=== PATIENT | male | born 1960 | race Caucasian/White ===

== ENCOUNTER 2017-07-27 09:24 | Inpatient (IN) | payer BC ==
[~2017-07-27] VITALS: Ht 154.9 cm; Wt 95.0 kg
[2017-07-27] MEDS ORDERED: METO-407 PO (10:03)
[2017-07-27] MEDS ORDERED: HYDR50TA3 PO (10:04)
[2017-07-27] MEDS ORDERED: LANT3I SC (10:04)
[2017-07-27] MEDS ORDERED: GLIP10TA95 PO (10:05)
[2017-07-27] MEDS ORDERED: MTF1000T PO (10:05)
[2017-07-27] MEDS ORDERED: OMEG1CAP2 PO (10:06)
[2017-07-27] MEDS ORDERED: ASPI81TA3 PO (10:06)
[2017-07-27] MEDS ORDERED: SOD CHLORIDE 0.9% 1,000 ML IV STA (10:32)
--- NOTE | 2017-07-27 11:05 | ERD ---
ER Documentation Chief Complaint Date/Time DATE: 07/27/17 TIME: 11:03 Chief Complaint sent from MD for eval abnormal labs HPI 56-year-old man sent by PMD for hypokalemia. He started using hydrochlorothiazide about 5 days ago for uncontrolled hypertension and medication noncompliance. He denies palpitations, no weakness, no fevers or chills, no chest pain or shortness of breath, no vomiting or diarrhea. ROS All systems reviewed and are negative except as per history of present illness. Medications Home Meds Reported Medications Aspirin* (Aspirin* Chew) 81 Mg Tab.chew, 81 MG PO DAILY, TAB.CHEW 07/27/17 Amanda-3 Acid Ethyl Esters (Lovaza) 1 Gm Capsule, 2 GM PO DAILY, CAP 07/27/17 Metformin* (Glucophage*) 1,000 Mg Tablet, 1000 MG PO BID, #60 TAB 07/27/17 Glipizide* (Glucotrol*) 10 Mg Tablet, 10 MG PO BID, TAB 07/27/17 Insulin Glargine* (Lantus*) 100 Unit/Ml Soln, 10 UNIT SC QPM, #1 VIAL 07/27/17 Hydrochlorothiazide* (Hydrochlorothiazide*) 50 Mg Tab, 50 MG PO DAILY, #30 TAB 07/27/17 Metoprolol Tartrate* (Lopressor*) 100 Mg Tablet, 100 MG PO BID, #60 TAB 07/27/17 Allergies Allergies: Coded Allergies: No Known Allergy (Unverified , 07/27/17) PMhx/Soc Hypertension, diabetes mellitus History of Surgery: Yes (right knee surgery post accident) Hx Cardiac Disorders: Yes (htn) Hx Miscellaneous Medical Probl: Yes (dm) Hx Alcohol Use: Yes Hx Substance Use: No Hx Tobacco Use: No Smoking Status: Never smoker FmHx Family History: No diabetes Physical Exam Vitals Vital Signs Date Time Temp Pulse Resp B/P Pulse Ox O2 Delivery O2 Flow Rate FiO2 07/27/17 10:17 72 17 149/89 96 Room Air 07/27/17 09:28 98.9 73 20 137/81 99 Physical Exam GENERAL: Well-developed, well-nourished, well-hydrated, in no apparent distress , looks nontoxic in appearance HEENT: Moist mucous membranes, pink conjunctiva, no cervical spine tenderness or step-off deformities, no goiter, no jaundice or icterus, extraocular movements intact without pain. No submandibular induration, and no pharyngeal erythema NEURO: Alert and oriented 3, cranial nerves II through XII intact bilaterally, pupils equal round reactive to light, no focal deficits or facial asymmetry, sensation intact distally Strength 5/5 in upper and lower extremities bilaterally CARDIAC: Regular rate and rhythm, no murmurs rubs or gallops LUNGS: Clear bilaterally no wheezing crackles or stridor ABDOMEN: Soft nontender, no guarding, no rigidity, no rebound, no psoas sign no obturator sign. Normoactive bowel sounds SKIN: Warm and dry to touch, no abrasions, contusions, or hematomas, no lacerations, no ecchymosis, no target lesions, and without ulcers EXTREMITIES: No clubbing cyanosis or edema, calves are bilaterally symmetrical, no Homans sign, no popliteal cord sign. Distal pulses equal and bilateral PSYCH: Normal affect without agitation or irritability Result Diagram: 07/27/17 1000 07/27/17 1000 Results 24 hrs Laboratory Tests Test 07/27/17 10:00 White Blood Count 10.010^3/ul Red Blood Count 5.0710^6/ul Hemoglobin 16.1g/dl Hematocrit 46.0% Mean Corpuscular Volume 90.7fl Mean Corpuscular Hemoglobin 31.8pg Mean Corpuscular Hemoglobin Concent 35.0g/dl Red Cell Distribution Width 12.0% Platelet Count 02064^3/UL Mean Platelet Volume 10.9fl Neutrophils % 68.7% Lymphocytes % 19.3% Monocytes % 9.8% Eosinophils % 0.7% Basophils % 1.1% Nucleated Red Blood Cells % 0.0/100WBC Neutrophils # (Manual) 6.910^3/ul Lymphocytes # 1.910^3/ul Monocytes # 1.010^3/ul Eosinophils # 0.110^3/ul Basophils # 0.110^3/ul Nucleated Red Blood Cells # 0.010^3/ul Sodium Level 141mmol/L Potassium Level 2.3mmol/L Chloride Level 84mmol/L Carbon Dioxide Level 36mmol/L Anion Gap 23 Blood Urea Nitrogen 30mg/dl Creatinine 1.27mg/dl Glucose Level 261mg/dl Calcium Level 10.0mg/dl Total Bilirubin 0.9mg/dl Direct Bilirubin 0.00mg/dl Indirect Bilirubin 0.9mg/dl Aspartate Amino Transf (AST/SGOT) 45IU/L Alanine Aminotransferase (ALT/SGPT) 54IU/L Alkaline Phosphatase 110IU/L Troponin I 0.030ng/ml Total Protein 8.2g/dl Albumin 4.4g/dl Globulin 3.80g/dl Albumin/Globulin Ratio 1.15 Lipase 206U/L Current Medications Medications (Trade) Dose Ordered Sig/Tiffanie Route PRN Reason Start Time Stop Time Status Last Admin Dose Admin Sodium Chloride 1,000 ml @ 1,000 mls/hr Q1H STAT IV 07/27/17 10:32 07/27/17 11:31 DC 07/27/17 10:54 Magnesium Sulfate/ Dextrose 100 ml @ 100 mls/hr ONCE ONCE IVPB 07/27/17 13:00 07/27/17 13:59 07/27/17 13:17 Potassium Chloride (KCl 40 MEQ/250 ML NS) 250 ml @ 62.5 mls/hr ONCE ONCE IVPB 07/27/17 13:00 07/27/17 16:59 Potassium Citrate (Urocit-K) 40 meq ONCE STAT PO 07/27/17 12:55 07/27/17 13:10 DC Procedures/MDM IV line was established patient was placed on quality assurance monitor chassis rhythm strip revealed a sinus rhythm at about 60 bpm. Patient was afebrile. EKG performed, read by me revealed a normal sinus rhythm at 67 bpm, normal axis , with a right ventricular conduction delay at 104 ms, diffuse T-wave inversions and evidence of left ventricular hypertrophy in precordial leads, no concerning ST elevations or depressions noted. CBC was unremarkable, electrolytes revealed dehydration with an increased BUN/ creatinine ratio at 30/1.3, potassium low at 2.3, liver function tests unremarkable, troponin negative. I had already administered 1 L normal saline intravenously and for severe hypokalemia administered both IV and oral potassium supplementation as well as magnesium 1 g IV. Critical Care: Time: 37 minutes, this was time separate from other billable procedures. Treatments/Evaluations: Close monitoring and treatment of unstable vital signs, cardiorespiratory, and neurologic status, while maintaining tight balance of fluid, respiratory, and cardiac interventions. Patient will be admitted to telemetry setting for continued medical management, blood pressure control, potassium supplementation. His hypokalemia is most likely secondary to recent hydrochlorothiazide use. Departure Diagnosis: Primary Impression: Hypokalemia Additional Impressions: Side effect of potassium wasting diuretic Hypertension Hypertension type: essential hypertension Qualified Code: I10 - Essential hypertension Condition: MAIA Hernandez MD Jul 27, 2017 11:05
[2017-07-27 11:51] LABS: BASOPHIL # 0.1 10^3/ul (0.0-0.1); BASOPHILS % 1.1 % (0.0-2.0); EOSINOPHILS # 0.1 10^3/ul (0.0-0.5); EOSINOPHILS % 0.7 % (0.0-7.0); HEMOGLOBIN 16.1 g/dl (14.0-18.0); LYMPHOCYTES # 1.9 10^3/ul (0.8-2.9); LYMPHOCYTES % 19.3 % (15.0-51.0); MEAN CORPUSCULAR HEMOGLOBIN 31.8 pg (29.0-33.0); MEAN CORPUSCULAR VOLUME 90.7 fl (82.0-101.0); MEAN PLATELET VOLUME 10.9 fl (7.4-10.4); MONOCYTES % 9.8 % (0.0-11.0); NEUTROPHILS % 68.7 % (39.0-77.0); PLATELET COUNT 256 10^3/UL (140-415); RED BLOOD COUNT 5.07 10^6/ul (4.70-6.10)
[2017-07-27 12:50] LABS: ALBUMIN 4.4 g/dl (3.3-4.9); ALBUMIN/GLOBULIN RATIO 1.15; BILIRUBIN,INDIRECT 0.9 mg/dl (0-1.1); BILIRUBIN,TOTAL 0.9 mg/dl (0.2-1.3); CREATININE 1.27 mg/dl (0.61-1.24); TOTAL PROTEIN 8.2 g/dl (6.1-8.1)
[2017-07-27 12:53] LABS: POTASSIUM 2.3 mmol/L (3.5-5.1)
[2017-07-27] MEDS ORDERED: POTASSIUM CITRATE (SR) 5 MEQ TAB PO STA (12:55)
[2017-07-27 12:58] LABS: TROPONIN-I 0.03 ng/ml (0.00-0.12)
[2017-07-27] MEDS ORDERED: POTASSIUM CHLORIDE 250 ML IVPB ONE (13:00)
[2017-07-27] MEDS ORDERED: MAGNESIUM SULFATE 1 GM/D5W 100 ML IVPB ONE (13:00)
[2017-07-27] MEDS ORDERED: POTASSIUM CHLORIDE (SR) 20 MEQ TAB PO STA (13:36)
[2017-07-27] MEDS ORDERED: GLUCOSE GEL 15 GRAM TUBE PO PRN ×2 (15:00)
[2017-07-27] MEDS ORDERED: hydrALAzine 20 MG INJ IV PRN (15:00)
[2017-07-27] MEDS ORDERED: DEXTROSE 50% 50 ML SYRINGE IV PRN ×2 (15:00)
[2017-07-27] MEDS ORDERED: MAGNESIUM HYDROXIDE 30ML CUP PO PRN (15:00)
[2017-07-27] MEDS ORDERED: GLUCOSE GEL 15 GRAM TUBE BUCCAL PRN (15:00)
[2017-07-27] MEDS ORDERED: GLUCAGON 1 MG INJ IM PRN (15:00)
[2017-07-27] MEDS ORDERED: BISACODYL (EC) 5 MG TAB PO PRN (15:00)
[2017-07-27] MEDS ORDERED: ACETAMINOPHEN 325 MG TAB PO PRN (15:00)
[2017-07-27] MEDS ORDERED: ONDANSETRON 4 MG INJ IV PRN (15:00)
[2017-07-27] MEDS ORDERED: DOCUSATE SODIUM 100 MG CAP PO PRN (15:00)
[2017-07-27] MEDS ORDERED: HYDROCODONE/APAP (5/325) TAB PO PRN (15:00)
[2017-07-27] MEDS ORDERED: morphine 2 MG INJ IV PRN (15:00)
[2017-07-27] MEDS ORDERED: NACL 0.9% 3 ML SYG IV SCH (15:00)
--- NOTE | 2017-07-27 15:31 | RADRPT ---
PROCEDURE: Chest x-ray CLINICAL INDICATION: Low potassium TECHNIQUE: Chest single view COMPARISON: None FINDINGS: The heart is normal in size. The pulmonary vessels are normal in caliber. The lungs are clear. Th e costophrenic angles are sharp. The visualized bony thorax is unremarkable. IMPRESSION: No acute cardiopulmonary disease. Low lung volumes RPTAT: HH .Zach Drew MD, Date Time Electronically viewed and signed by .Zach Drew MD, on 07/27/2017 15:31 .W/
[2017-07-27 16:00] VITALS: TEMP 98
[2017-07-27] MEDS: METOPROLOL 100 MG TAB PO SCH ×2 (16:00→23:25)
[2017-07-27] MEDS: NIFEdipine (XL) 90 MG TAB PO SCH (16:00)
[2017-07-27] MEDS: POTASSIUM CHLORIDE 20 MEQ POWDER FOR ORAL SOLN PO SCH ×2 (16:00→23:23)
[2017-07-27 17:50] VITALS: BP 164/94; PULSE 71; RESP 20
--- NOTE | 2017-07-27 18:59 | HP ---
Date/Time of Note Date/Time of Note DATE: 07/27/17 TIME: 18:52 Assessment/Plan VTE Prophylaxis VTE Prophylaxis Intervention: ambulation Lines/Catheters IV [facility]from [facility] Saline Lock Assessment/Plan Chief Complaint/Hosp Course 1. Hypokalemia. Probably hydrochlorothiazide induced. Stable replace potassium. 2. Chronic hypertension. Will proceed with secondary workup. 3. Nonadherence 4. Possible alcoholism 6. Chronic diabetes 7. Metabolic syndrome 8. Recent fall Problems: HPI/ROS Admit Date/Time Admit Date/Time Jul 27, 2017 at 13:27 Hx of Present Illness Chief complaint low potassium. Has had problems with blood pressure sugar as an outpatient. Stop Coreg. Was recently placed on hydrochlorothiazide. Metoprolol and metformin may be associated with dizziness weakness, which she was concerned about affecting his work. No loss of speech vision nausea diarrhea confusion cough wheezing. ER: Stable vital signs rhythm. ROS Neuro: No loss of speech vision. Occasional dizziness which he states is due to medications Cardiology no cough no wheezing no edema Nares: No cough no wheezing no edema Abdomen: No pain positive nausea no constipation diarrhea Genitourinary no hematuria burning micturition fever Musculoskeletal weakness no gait dysfunction no rash no itching Constitutional no fevers no chills no weight loss Endocrine positive diabetes metabolic syndrome no previous thyroid disease Hematological: No dysuria hematochezia melena Psychiatry: No anxiety depression PMH/Family/Social Past Medical History Diabetes Hypertension Metabolic syndrome Alcoholism? Nonadherence Traumatic fall7 feet off a ladder Sciatica Past Surgical History Surgical history none Family History Significant Family History: other (No family history of early coronary disease cancer stroke. Brother had heart disease at 58.) Social History Alcohol Use: other (4 times weekly with [employer]) Smoking Status: Never smoker Exam/Review of Systems Vital Signs Vitals Vital Signs Date Time Temp Pulse Resp B/P Pulse Ox O2 Delivery O2 Flow Rate FiO2 07/27/17 17:50 99.0 71 20 164/94 97 Room Air Exam Exam No pallor icterus adenopathy JVD droop Regular no murmur rub gallop CTA B Bowel sounds present nontender nondistended no rigidity no rebound no guarding. Overweight no bruit No edema Labs Result Diagram: 07/27/17 1000 07/27/17 1000 Medications Medications Current Medications Potassium Chloride 40 meq 40 meq TID PO Last administered on 07/27/17 16:00; Admin Dose 40 MEQ; Start 07/27/17 at 15:00 Potassium Chloride/Dextrose/ Sod Cl (D5-1/2ns + KCl 40 Meq) 1,000 ml @ 50 mls/ hr Q20H IV ; Start 07/27/17 at 15:00 Nifedipine (Procardia Xl) 90 mg DAILY PO Last administered on 07/27/17 16:00; Admin Dose 90 MG; Start 07/27/17 at 15:00 Hydralazine HCl (Apresoline) 5 mg Q3 PRN IV ELEVATED SYSTOLIC BP Last administered on 07/27/17 17:04; Admin Dose 5 MG; Start 07/27/17 at 15:00 Aspirin (Aspirin) 81 mg DAILY PO ; Start 07/28/17 at 09:00 Insulin Glargine (Lantus) 10 unit QPM SC ; Start 07/27/17 at 21:00 Metoprolol Tartrate (Lopressor) 100 mg BID PO Last administered on 07/27/17 16 :00; Admin Dose 100 MG; Start 07/27/17 at 15:00 Ondansetron HCl (Zofran Inj) 4 mg Q6H PRN IV NAUSEA AND/OR VOMITING; Start at 15:00 Acetaminophen (Tylenol Tab) 650 mg Q6H PRN PO PAIN LEVEL 1-3 OR FEVER; Start at 15:00 Acetaminophen/ Hydrocodone Bitart ([place] (5/325)) 1 tab Q6H PRN PO MODERATE PAIN LEVEL 4-6 Last administered on 07/27/17 16:06; Admin Dose 1 TAB; Start at 15:00 Morphine Sulfate (morphine) 2 mg Q4H PRN IV SEVERE PAIN LEVEL 7-10; Start 07/27 at 15:00 Docusate Sodium (Colace) 100 mg Q12H PRN PO CONSTIPATION; Start 07/27/17 at 15: 00 Magnesium Hydroxide (Milk Of Mag) 30 ml DAILY PRN PO CONSTIPATION; Start at 15:00 Bisacodyl (Dulcolax) 5 mg DAILY PRN PO CONSTIPATION; Start 07/27/17 at 15:00 Enoxaparin Sodium (Lovenox) 40 mg DAILY SC ; Start 07/28/17 at 09:00 Miscellaneous Information 1 ea NOTE XX ; Start 07/27/17 at 15:00 Glucose (Glutose) 15 gm Q15M PRN PO DECREASED GLUCOSE; Start 07/27/17 at 15:00 Glucose (Glutose) 22.5 gm Q15M PRN PO DECREASED GLUCOSE; Start 07/27/17 at 15: 00 Dextrose (D50w Syringe) 25 ml Q15M PRN IV DECREASED GLUCOSE; Start 07/27/17 at 15:00 Dextrose (D50w Syringe) 50 ml Q15M PRN IV DECREASED GLUCOSE; Start 07/27/17 at 15:00 Glucagon (Glucagen) 1 mg Q15M PRN IM DECREASED GLUCOSE; Start 07/27/17 at 15:00 Glucose (Glutose) 15 gm Q15M PRN BUCCAL DECREASED GLUCOSE; Start 07/27/17 at 15 :00 JORDAN BRUSH MD Jul 27, 2017 18:59
[2017-07-27 19:02] VITALS: Ht 154.9 cm; Wt 95.0 kg
[2017-07-27 20:03] VITALS: PULSE 72
[2017-07-27] MEDS: D5W-0.45 NACL + KCL 40 MEQ 1,000 ML IV SCH (21:01)
[2017-07-27 21:56] VITALS: BP 134/88; PULSE 77; RESP 20
[2017-07-27] MEDS: LISINOPRIL 5 MG TAB PO SCH (23:24)
[2017-07-27] MEDS: INSULIN GLARGINE [LANtus] 3 ML PEN SC SCH (23:27)
[2017-07-28] VITALS (9 sets, daily range): BP systolic 117–140; BP diastolic 69–73; PULSE 66–79; RESP 14–18
[2017-07-28] MEDS: POTASSIUM CHLORIDE 20 MEQ POWDER FOR ORAL SOLN PO SCH ×3 (09:48→20:38)
[2017-07-28] MEDS: ENOXAPARIN 40 MG/0.4 ML SYG SC SCH (09:51)
[2017-07-28] MEDS: NIFEdipine (XL) 90 MG TAB PO SCH (09:53)
[2017-07-28] MEDS: LISINOPRIL 5 MG TAB PO SCH (09:53)
[2017-07-28] MEDS: METOPROLOL 100 MG TAB PO SCH ×2 (09:54→20:39)
[2017-07-28] MEDS: ASPIRIN 81 MG TAB PO SCH (10:33)
[2017-07-28 10:51] LABS: BASOPHIL # 0.1 10^3/ul (0.0-0.1); BASOPHILS % 0.9 % (0.0-2.0); EOSINOPHILS # 0.1 10^3/ul (0.0-0.5); EOSINOPHILS % 1.6 % (0.0-7.0); HEMATOCRIT 47.3 % (42.0-52.0); HEMOGLOBIN 16.2 g/dl (14.0-18.0); LYMPHOCYTES # 2.3 10^3/ul (0.8-2.9); MEAN CORPUSCULAR HEMOGLOBIN 31.8 pg (29.0-33.0); MEAN CORPUSCULAR HGB CONC 34.2 g/dl (32.0-37.0); MEAN CORPUSCULAR VOLUME 92.9 fl (82.0-101.0); MEAN PLATELET VOLUME 10.5 fl (7.4-10.4); MONOCYTE # 0.8 10^3/ul (0.3-0.9); MONOCYTES % 10.4 % (0.0-11.0); NEUTROPHILS % 56.4 % (39.0-77.0); PLATELET COUNT 258 10^3/UL (140-415); RED BLOOD COUNT 5.09 10^6/ul (4.70-6.10); RED CELL DISTRIBUTION WIDTH 12.2 % (11.5-14.5); WHITE BLOOD COUNT 7.7 10^3/ul (4.8-10.8)
[2017-07-28] MEDS: D5W-0.45 NACL + KCL 40 MEQ 1,000 ML IV SCH ×2 (11:00→18:12)
[2017-07-28 11:06] LABS: INR 1.01; PROTIME 13.3 Sec (12.2-14.2)
[2017-07-28 11:07] LABS: CHOL/HDL RATIO 2.8 RATIO
[2017-07-28 11:08] LABS: ALBUMIN 4.5 g/dl (3.3-4.9); ALBUMIN/GLOBULIN RATIO 1.12; BILIRUBIN,INDIRECT 0.9 mg/dl (0-1.1); BILIRUBIN,TOTAL 0.9 mg/dl (0.2-1.3); CALCIUM 9.5 mg/dl (8.4-10.2); CREATININE 0.97 mg/dl (0.61-1.24); MAGNESIUM 2.1 mg/dl (1.7-2.5); PHOSPHORUS 2.9 mg/dl (2.5-4.9); POTASSIUM 3.3 mmol/L (3.5-5.1); TOTAL PROTEIN 8.5 g/dl (6.1-8.1)
[2017-07-28 12:11] LABS: THYROID STIMULATING HORMONE 2.48 MIU/L (0.465-4.680)
--- NOTE | 2017-07-28 17:10 | PN ---
Date/Time of Note Date/Time of Note DATE: 07/28/17 TIME: 17:08 Assessment/Plan VTE Prophylaxis VTE Prophylaxis Intervention: LMWH Lines/Catheters IV Catheter Type (from Nrs): Saline Lock Assessment/Plan Chief Complaint/Hosp Course No events. Blood sugar stable Vital signs stable No pallor Reg Clear Bs + nt nd no r/r/g ext edema A/P 1. Hypokalemia. Probably hctz induced. Stable replace K. 2. Chr htn. Will proceed with secondary workup. USG pending 3. Nonadherence 4. Possible alcoholism 6. Chronic diabetes 7. Metabolic syndrome 8. Recent fall Problems: Exam/Review of Systems Vital Signs Vitals Vital Signs Date Time Temp Pulse Resp B/P Pulse Ox O2 Delivery O2 Flow Rate FiO2 07/28/17 16:10 77 07/28/17 14:29 98.7 18 140/73 98 Room Air Intake and Output 07/27/17 07/27/17 07/28/17 15:00 23:00 07:00 Intake Total 1000 ml Balance 1000 ml Results Result Diagram: 07/28/17 1019 07/28/17 1019 Results 24 hrs Laboratory Tests Test 07/28/17 10:19 White Blood Count 7.7 # Red Blood Count 5.09 Hemoglobin 16.2 Hematocrit 47.3 Mean Corpuscular Volume 92.9 Mean Corpuscular Hemoglobin 31.8 Mean Corpuscular Hemoglobin Concent 34.2 Red Cell Distribution Width 12.2 Platelet Count 258 Mean Platelet Volume 10.5 H Neutrophils % 56.4 Lymphocytes % 30.0 Monocytes % 10.4 Eosinophils % 1.6 Basophils % 0.9 Nucleated Red Blood Cells % 0.0 Neutrophils # (Manual) 4.3 Lymphocytes # 2.3 Monocytes # 0.8 Eosinophils # 0.1 Basophils # 0.1 Nucleated Red Blood Cells # 0.0 Prothrombin Time 13.3 Prothrombin Time Ratio 1.0 INR International Normalized Ratio 1.01 Sodium Level 142 Potassium Level 3.3 L Chloride Level 97 # Carbon Dioxide Level 36 H Anion Gap 12 # Blood Urea Nitrogen 23 H Creatinine 0.97 Glucose Level 194 Hemoglobin A1c 7.3 H Calcium Level 9.5 Phosphorus Level 2.9 Magnesium Level 2.1 Total Bilirubin 0.9 Direct Bilirubin 0.00 Indirect Bilirubin 0.9 Aspartate Amino Transf (AST/SGOT) 48 H Alanine Aminotransferase (ALT/SGPT) 55 Alkaline Phosphatase 108 Total Protein 8.5 H Albumin 4.5 Globulin 4.00 H Albumin/Globulin Ratio 1.12 Triglycerides Level 172 H Cholesterol Level 195 LDL Cholesterol, Calculated 92 HDL Cholesterol 69 Cholesterol/HDL Ratio 2.8 Thyroid Stimulating Hormone (TSH) 2.480 Medications Medications Current Medications Potassium Chloride 40 meq 40 meq TID PO Last administered on 07/28/17 13:38; Admin Dose 40 MEQ; Start 07/27/17 at 15:00 Potassium Chloride/Dextrose/ Sod Cl (D5-1/2ns + KCl 40 Meq) 1,000 ml @ 50 mls/ hr Q20H IV Last administered on 07/28/17 11:00; Admin Dose 50 MLS/HR; Start at 15:00 Nifedipine (Procardia Xl) 90 mg DAILY PO Last administered on 07/28/17 09:53; Admin Dose 90 MG; Start 07/27/17 at 15:00 Hydralazine HCl (Apresoline) 5 mg Q3 PRN IV ELEVATED SYSTOLIC BP Last administered on 07/27/17 17:04; Admin Dose 5 MG; Start 07/27/17 at 15:00 Aspirin (Aspirin) 81 mg DAILY PO Last administered on 07/28/17 10:33; Admin Dose 81 MG; Start 07/28/17 at 09:00 Insulin Glargine (Lantus) 10 unit QPM SC Last administered on 07/27/17 23:27; Admin Dose 10 UNIT; Start 07/27/17 at 21:00 Metoprolol Tartrate (Lopressor) 100 mg BID PO Last administered on 07/28/17 09: 54; Admin Dose 100 MG; Start 07/27/17 at 15:00 Ondansetron HCl (Zofran Inj) 4 mg Q6H PRN IV NAUSEA AND/OR VOMITING; Start at 15:00 Acetaminophen (Tylenol Tab) 650 mg Q6H PRN PO PAIN LEVEL 1-3 OR FEVER; Start at 15:00 Acetaminophen/ Hydrocodone Bitart ([place] (5/325)) 1 tab Q6H PRN PO MODERATE PAIN LEVEL 4-6 Last administered on 07/27/17 16:06; Admin Dose 1 TAB; Start at 15:00 Morphine Sulfate (morphine) 2 mg Q4H PRN IV SEVERE PAIN LEVEL 7-10; Start 07/27 at 15:00 Docusate Sodium (Colace) 100 mg Q12H PRN PO CONSTIPATION; Start 07/27/17 at 15: 00 Magnesium Hydroxide (Milk Of Mag) 30 ml DAILY PRN PO CONSTIPATION; Start at 15:00 Bisacodyl (Dulcolax) 5 mg DAILY PRN PO CONSTIPATION; Start 07/27/17 at 15:00 Enoxaparin Sodium (Lovenox) 40 mg DAILY SC Last administered on 07/28/17 09:51 ; Admin Dose 40 MG; Start 07/28/17 at 09:00 Miscellaneous Information 1 ea NOTE XX ; Start 07/27/17 at 15:00 Glucose (Glutose) 15 gm Q15M PRN PO DECREASED GLUCOSE; Start 07/27/17 at 15:00 Glucose (Glutose) 22.5 gm Q15M PRN PO DECREASED GLUCOSE; Start 07/27/17 at 15: 00 Dextrose (D50w Syringe) 25 ml Q15M PRN IV DECREASED GLUCOSE; Start 07/27/17 at 15:00 Dextrose (D50w Syringe) 50 ml Q15M PRN IV DECREASED GLUCOSE; Start 07/27/17 at 15:00 Glucagon (Glucagen) 1 mg Q15M PRN IM DECREASED GLUCOSE; Start 07/27/17 at 15:00 Glucose (Glutose) 15 gm Q15M PRN BUCCAL DECREASED GLUCOSE; Start 07/27/17 at 15 :00 Lisinopril (Zestril) 5 mg DAILY PO Last administered on 07/28/17 09:53; Admin Dose 5 MG; Start 07/27/17 at 21:00 JORDAN BRUSH MD Jul 28, 2017 17:10
[2017-07-28] MEDS: INSULIN GLARGINE [LANtus] 3 ML PEN SC SCH (21:58)
[2017-07-29] VITALS (9 sets, daily range): BP systolic 111–139; BP diastolic 68–83; PULSE 65–79; RESP 16–19
[2017-07-29] MEDS: POTASSIUM CHLORIDE 20 MEQ POWDER FOR ORAL SOLN PO SCH (08:51)
[2017-07-29] MEDS: METOPROLOL 100 MG TAB PO SCH (08:52)
[2017-07-29] MEDS: ASPIRIN 81 MG TAB PO SCH (08:52)
[2017-07-29] MEDS: LISINOPRIL 5 MG TAB PO SCH (08:52)
[2017-07-29] MEDS: NIFEdipine (XL) 90 MG TAB PO SCH (08:52)
[2017-07-29] MEDS: ENOXAPARIN 40 MG/0.4 ML SYG SC SCH (08:59)
--- NOTE | 2017-07-29 10:33 | PDOCDIS ---
Discharge Instructions DIAGNOSIS Discharge Diagnosis hypokalemia CONDITION Patient Condition: Stable HOME CARE INSTRUCTIONS: Special Diet: 1800 ada ACTIVITY: Activity Restrictions: Slowly Increase Activity FOLLOW UP/APPOINTMENTS Follow-up Plan Pcp 1wJORDAN Figueredo MD Jul 29, 2017 10:33
[2017-07-29] MEDS ORDERED: POTA20PA23 PO (10:35)
[2017-07-29] MEDS ORDERED: NIFE90TA PO (10:35)
[2017-07-29] MEDS ORDERED: LISI-313 PO (10:35)
--- NOTE | 2017-07-29 11:32 | DS ---
Date/Time of Note Date/Time of Note DATE: 07/29/17 TIME: 11:24 Discharge Summary Admission/Discharge Info Admit Date/Time Jul 27, 2017 at 13:27 Discharge Date/Time Discharge Diagnosis hypokalemia Patient Condition: Good Procedures Renal Artery Ultrasound-- X-ray ok Labs. TSH ok. A1c 7.2. Hx of Present Illness Chief complaint low potassium. Has had problems with blood pressure sugar as an outpatient. Stop Coreg. Was recently placed on hydrochlorothiazide. Metoprolol and metformin may be associated with dizziness weakness, which she was concerned about affecting his work. No loss of speech vision nausea diarrhea confusion cough wheezing. ER: Stable vital signs rhythm. Hospital Course Evaluated and managed for hyperkalemia. No syncope bradycardia EKG changes or symptoms. On hydrochlorothiazide. This was discontinued. Patient was given oral and IV potassium. He is presently stable and fit for discharge. Patient has nonadherence to htn meds, due to possible adverse symptoms on diabetic and hypertensive management. While in the hospital, the patient seems to be tolerating beta-elvia and his new calcium channel elvia and MAR inhibitor. I held metformin while he was in the hospital. Secondary eval for elevated blood pressure and hypokalemia was sent. I think this will be negative but can be followed up as needed at [phone] and [phone]. A/P 1. Hypokalemia. Probably hctz induced. Stable replaced K. 2. Chr htn. Will proceed with secondary workup. Reanl Artery Study done; results pending. 3. Nonadherence 4. Possible alcoholism 6. Chronic diabetes 7. Metabolic syndrome 8. Recent fall Stopped Medications Hydrochlorothiazide New medications nifedipine 60 Lisinopril 5 K 40 once daily 3 days Home Meds Active Scripts Potassium Chloride (Potassium Chloride) 20 Meq Packet, 40 MEQ PO DAILY for 3 Days, #5 PACKET Prov:JORDAN BRUSH MD 07/29/17 Nifedipine (Procardia Xl) 90 Mg Tab.er.24, 90 MG PO DAILY for 15 Days, #15 TAB Prov:JORDAN BRUSH MD 07/29/17 Lisinopril* (Lisinopril*) 5 Mg Tablet, 5 MG PO DAILY for 15 Days, #15 TAB Prov:JORDAN BRUSH MD 07/29/17 Reported Medications Aspirin* (Aspirin* Chew) 81 Mg Tab.chew, 81 MG PO DAILY, TAB.CHEW 07/27/17 Dike-3 Acid Ethyl Esters (Lovaza) 1 Gm Capsule, 2 GM PO DAILY, CAP 07/27/17 Metformin* (Glucophage*) 1,000 Mg Tablet, 1000 MG PO BID, #60 TAB 07/27/17 Glipizide* (Glucotrol*) 10 Mg Tablet, 10 MG PO BID, TAB 07/27/17 Insulin Glargine* (Lantus*) 100 Unit/Ml Soln, 10 UNIT SC QPM, #1 VIAL 07/27/17 Metoprolol Tartrate* (Lopressor*) 100 Mg Tablet, 100 MG PO BID, #60 TAB 07/27/17 Discontinued Reported Medications Hydrochlorothiazide* (Hydrochlorothiazide*) 50 Mg Tab, 50 MG PO DAILY, #30 TAB 07/27/17 Follow-up Plan PCP 1wk Primary Care Provider Alissa Arshad Pending Labs Laboratory Tests Test 07/28/17 17:15 07/28/17 21:52 07/29/17 10:35 Bedside Glucose 263mg/dL (70-220) 162mg/dL (70-220) Potassium Level 3.9mmol/L (3.5-5.1) JORDAN BRUSH MD Jul 29, 2017 11:32
[2017-07-29 11:37] LABS: ADD UMIC NO; UR ASCORBIC ACID NEGATIVE (NEGATIVE); UR BILIRUBIN (Dip) NEGATIVE (NEGATIVE); UR BLOOD (Dip) NEGATIVE (NEGATIVE); UR CLARITY CLEAR (CLEAR); UR COLOR STRAW (YELLOW); UR GLUCOSE (Dip) 3+ mg/dL (NEGATIVE); UR KETONES (Dip) NEGATIVE (NEGATIVE); UR LEUKOCYTE ESTERASE (Dip) NEGATIVE Leu/ul (NEGATIVE); UR NITRITE (Dip) NEGATIVE (NEGATIVE); UR SPECIFIC GRAVITY (Dip) 1.007 (1.003-1.030); UR TOTAL PROTEIN (Dip) NEGATIVE (NEGATIVE); UR UROBILINOGEN (Dip) NEGATIVE (NEGATIVE)
[2017-07-30] MEDS ORDERED: POTASSIUM CHLORIDE 20 MEQ POWDER FOR ORAL SOLN PO SCH (09:00)
--- NOTE | 2017-07-31 11:03 | RADRPT ---
PROCEDURE: US Renal Arteries. CLINICAL INDICATION: Hypertension TECHNIQUE: Renal artery Doppler ultrasound was performed with barnes scale, color flow, and Doppler interrogation of the renal arteries and kidneys. COMPARISON: None available FINDINGS: The right kidney measures 11.4 cm. The left kidney measures 11.0 cm. There are no focal areas of abn ormal echogenicity. There is no evidence for obstructive uropathy. LOCATIONRIGHT (cm/sec)LEFT (cm/sec) Aorta PSV 60.4 Prox main renal artery PSVobscured by bowel gas obscured by bowel gas Resistive Index Mid main renal artery PSVobscured by bowel gas obscured by bowel gas Resistive Index Dist main renal artery PSV50.1 obscured by bowel gas Resistive Index0.8 Renal Artery-Aorta Ratio0.8 N/A Segmental artery PSV42.5 19.8 Resistive Index0.7 0.78 Arcuate artery PSV28.5 33.5 Resistive Index0.8 0.8 IMPRESSION: 1. Evaluation is limited. The proximal renal arteries were not visualized secondary to overlying b owel gas. Consider follow-up evaluation after prolonged n.p.o. status. Alternatively, CT or MR ang iogram of the renal arteries can be performed. 2. Unremarkable appearance of the kidneys. RPTAT: HH .Rosa Terrell MD, Date Time Electronically viewed and signed by .Rosa Terrell MD, on 07/31/2017 11:02 .Sonya/
== END 2017-07-29 17:33 | disposition home or self-care (01) | DRG 641 ==
LOC: E/R 09:24 → MS3 13:27 → MS4 18:10
PROVIDERS: ADMIT Internal Medicine; ATTEND Internal Medicine
DX: E87.6 Hypokalemia (principal); E88.81 Metabolic syndrome and other insulin resistance; I10 Essential (primary) hypertension; T50.2X5A Adverse effect of carbonic-anhydrase inhibitors, benzothiadiazides and other diuretics, initial encounter; Y92.029 Unspecified place in mobile home as the place of occurrence of the external cause; E11.9 Type 2 diabetes mellitus without complications; F10.20 Alcohol dependence, uncomplicated; M54.30 Sciatica, unspecified side; Z79.4 Long term (current) use of insulin; Z79.84 Long term (current) use of oral hypoglycemic drugs; Z91.14 Patient's other noncompliance with medication regimen
CPT/HCPCS: 36415; 71010; 80053; 80061; 81003; 82088; 82306; 82962; 83036; 83690; 83735; 83835; 84100; 84132; 84244; 84443; 84484; 85025; 85610; 93005; 93976; 96361; 96374; 96375; J0360; J1650; J1815; J3475; J3480; J7030

== ENCOUNTER → 2017-08-03 | Outpatient (CLI) | payer BC ==
[~2017-08-03] VITALS: Ht 154.9 cm; Wt 100.5 kg
[~2017-08-03] MED LIST: ASPI81TA3 PO; GLIP10TA95 PO; LANT3I SC; LISI-313 PO; METO-407 PO; MTF1000T PO; NIFE90TA PO; OMEG1CAP2 PO; POTA20PA23 PO
[2017-08-03 15:15] VITALS: BP 130/71; PULSE 75; RESP 18; Ht 154.9 cm; Wt 100.5 kg
--- NOTE | 2017-08-03 15:43 | PN ---
Date/Time of Note Date/Time of Note DATE: 08/03/17 TIME: 15:37 Outpatient Progress Note Chief Complaint Hypertension/diabetes/metabolic syndrome/recent fall HPI Hypertension/no headache or dizziness, no local focal weakness, Diabetes/no polydipsia polyuria hypoglycemia, gastroparesis, no rash, Metabolic syndrome/patient has metabolic syndrome, patient morbidly obese, no history of any thyroid problem, Recent fall/patient now fell down from lateral, patient still has 20% pain, much improved compared to before, no tingling or numbness, Review of Systems Const: No Fever, no chills, no Wt. loss, no Fatigue, normal appetite, no diaphoresis. Patient morbidly obese, Eyes: No pain, no discharge, no redness, no visual change, no foreign body. ENT: No pain, no bleeding, no congestion, no sore throat, no dysphagia, no discharge or rhinitis. Lymph: No adenopathy, no tender nodes, no lymphedema. Resp: No SOB, no cough, no sputum, no wheezing, no chest pain. CV: No chest pain, no palpitaions, no BRONSON, no PND, no edema. GI: Normal appetite, no pain, no nausea, no vomiting, no diarrhea, no blood, no constipation. : No frequency, no urgency, no dysuria, no hematuria, no flank pain, no discharge, no bleeding. Musc: Generalized discomfort,, no back pain, no neck pain, no knee pain, no restricted ROM. Skin: No rash, no skin lesions, no erythema, no laceration, no bruising, no pruritus. Neuro: No BLAIR, no dizziness, no syncope, no seizure, no focal-weakness. Endo: No polyuria, no polydypsia, no dry-skin, no temp-intolerance. Psych: No hallucinations, no depression, no anxiety, no suicidal ideation. Ext: No edema, no pain, no ulcer, no weakness. Physical Exam Vital Signs Date Time Temp Pulse Resp B/P Pulse Ox O2 Delivery O2 Flow Rate FiO2 08/03/17 15:15 98.6 75 18 130/71 94 Room Air General Appearance: A 56 year-old male who appears well-developed, well- nourished, in no acute distress. HEENT: Head normocephalic, atraumatic. Pupils equal, round, reactive to light and accommodate. Sclerae are no jaundice. Nasal turbinates pink without erythema or nasal discharge. Mucous membranes pink and moist without lesions. Oropharynx clear without any exudate or discharge. NECK: Supple. Trachea midline, No thyromegaly, No cervical lymphadenopathy, No mass, No carotid bruits, No JVD, Carotid pulses 2+ bilaterally. PULMONARY: Clear to auscultaion bilaterally, No retractions, Chest expansion symmetric bilaterally, no rales, no ronchi, no dulness on percussion. CARDIAC: Normal SI and S2, Regular rate and rythm, no murmur, gallop, or rub. GASTROINTESTINAL: Abdomen is soft, non-tender, Non Rigid, No distention, Positive bowel sounds x4 quadrants, Liver normal. SKIN: Warm, dry, no rash, no bruise, no echmosis. EXTREMITIES: Bilateral lower extremities normal, no edema, no phlabitus, pulse palpable, no contracture. MUSCULOSKELETAL: Spine Normal, Non-tender, patient has generalized discomfort, much improved, normal range of motion, No swelling, no deformity, no clubbing, or cyanosis, the patient has no edema to bilateral lower extremities, dorsalis pedis pulses palpable bilaterally. NEUROLOGIC: The patient is awake, alert, oriented, responding to yes/no questions appropriately, moving all extremities, cranial nerve intact, normal strenght, normal power, normal coordination, normal gait. Allergies Coded Allergies: No Known Allergy (Unverified , 07/27/17) PMH Hypokalemia/history of alcoholism,/diabetic,/hypertension/metabolic syndrome Social Hx No smoking history suggestive of her chronic alcohol abuse, Family Hx Noncontributory Assessment/Plan Impression Hypertension/diabetes/metabolic syndrome/recent fall Plan Patient was recently hospitalized with f hypokalemia, patient also had metabolic syndrome, patient had hypokalemia, patient slightly doing better, Patient education done about controlling the blood pressure blood sugar and weight, risk explained, and complication explained, patient will increase activity, control blood sugar and blood pressure, Patient encouraged to follow with the primary care physician on regular basis, Fall precaution, Medications Home Meds Active Scripts Potassium Chloride (Potassium Chloride) 20 Meq Packet, 40 MEQ PO DAILY for 3 Days, #5 PACKET Prov:JORDAN BRUSH MD 07/29/17 Nifedipine (Procardia Xl) 90 Mg Tab.er.24, 90 MG PO DAILY for 15 Days, #15 TAB Prov:JORDAN BRUSH MD 07/29/17 Lisinopril* (Lisinopril*) 5 Mg Tablet, 5 MG PO DAILY for 15 Days, #15 TAB Prov:JORDAN BRUSH MD 07/29/17 Reported Medications Aspirin* (Aspirin* Chew) 81 Mg Tab.chew, 81 MG PO DAILY, TAB.CHEW 07/27/17 [place]-3 Acid Ethyl Esters (Lovaza) 1 Gm Capsule, 2 GM PO DAILY, CAP 07/27/17 Metformin* (Glucophage*) 1,000 Mg Tablet, 1000 MG PO BID, #60 TAB 07/27/17 Glipizide* (Glucotrol*) 10 Mg Tablet, 10 MG PO BID, TAB 07/27/17 Insulin Glargine* (Lantus*) 100 Unit/Ml Soln, 10 UNIT SC QPM, #1 VIAL 07/27/17 Metoprolol Tartrate* (Lopressor*) 100 Mg Tablet, 100 MG PO BID, #60 TAB 07/27/17 Discontinued Reported Medications Hydrochlorothiazide* (Hydrochlorothiazide*) 50 Mg Tab, 50 MG PO DAILY, #30 TAB 07/27/17 MANUELA MCKINNEY MD Aug 03, 2017 15:43
== END | disposition home or self-care (01) ==
LOC: DCC 15:14
PROVIDERS: ATTEND Internal Medicine
DX: I10 Essential (primary) hypertension (principal); E11.9 Type 2 diabetes mellitus without complications; E88.81 Metabolic syndrome and other insulin resistance; Z91.81 History of falling

== ENCOUNTER → 2017-08-17 | Outpatient (CLI) | payer BC ==
[~2017-08-17] VITALS: Ht 154.9 cm; Wt 101.4 kg
[2017-08-17 11:17] VITALS: BP 152/84; PULSE 65; RESP 18; Ht 154.9 cm; Wt 101.4 kg
--- NOTE | 2017-08-17 12:02 | PN ---
Date/Time of Note Date/Time of Note DATE: 08/17/17 TIME: 11:57 Outpatient Progress Note Chief Complaint Hypertension/diabetes/metabolic syndrome/slight back pain HPI Hypertension/no headache or dizziness, patient blood pressure slightly elevated today, patient is running out of medication, Diabetes/no polyps or bleeding hypoglycemia, Metabolic syndrome/no polydipsia polyuria, patient morbidly obese, no weight loss, Back pain patient has slight neck discomfort also slight abdominal discomfort, this pain has improved significantly, patient had this pain after patient fell down, Review of Systems Const: No Fever, no chills, no Wt. loss, no Fatigue, normal appetite, no diaphoresis. Eyes: No pain, no discharge, no redness, no visual change, no foreign body. ENT: No pain, no bleeding, no congestion, no sore throat, no dysphagia, no discharge or rhinitis. Lymph: No adenopathy, no tender nodes, no lymphedema. Resp: No SOB, no cough, no sputum, no wheezing, no chest pain. CV: No chest pain, no palpitaions, no BRONSON, no PND, no edema. GI: Normal appetite, no pain, no nausea, no vomiting, no diarrhea, no blood, no constipation. : No frequency, no urgency, no dysuria, no hematuria, no flank pain, no discharge, no bleeding. Musc:, Minimal back pain, no neck pain, no knee pain, no restricted ROM. Skin: No rash, no skin lesions, no erythema, no laceration, no bruising, no pruritus. Neuro: No BLAIR, no dizziness, no syncope, no seizure, no focal-weakness. Endo: No polyuria, no polydypsia, no dry-skin, no temp-intolerance. Psych: No hallucinations, no depression, no anxiety, no suicidal ideation. Ext: No edema, no pain, no ulcer, no weakness. Physical Exam Vital Signs Date Time Temp Pulse Resp B/P Pulse Ox O2 Delivery O2 Flow Rate FiO2 08/17/17 11:17 98.3 65 18 152/84 92 Room Air General Appearance: A 56 year-old male who appears well-developed, well- nourished, in no acute distress. Slightly obese, HEENT: Head normocephalic, atraumatic. Pupils equal, round, reactive to light and accommodate. no jaundice. Nasal turbinates pink without erythema or nasal discharge. Mucous membranes pink and moist without lesions. Oropharynx clear without any exudate or discharge. NECK: Supple. Trachea midline, No thyromegaly, No mass, No carotid bruits, No JVD, Carotid pulses 2+ bilaterally. PULMONARY: Clear to auscultaion bilaterally, No retractions, Chest expansion symmetric bilaterally, no rales, no ronchi, CARDIAC: Normal SI and S2, Regular rate and rythm, no murmur, gallop, or rub. GASTROINTESTINAL: Abdomen is soft, non-tender, Non Rigid, No distention, Positive bowel sounds x4 quadrants, Liver normal. SKIN: Warm, dry, no rash, no bruise, EXTREMITIES: Bilateral lower extremities no edema, no phlabitus, pulse palpable , no contracture. MUSCULOSKELETAL: Spine Normal, Non-tender, Normal range of motion, No swelling, no deformity, NEUROLOGIC: The patient is awake, alert, oriented, responding to yes/no questions appropriately, moving all extremities, cranial nerve intact, normal strenght, normal power, normal coordination, normal gait. Allergies Coded Allergies: No Known Allergy (Unverified , 07/27/17) PMH No change Social Hx No change Family Hx No change Assessment/Plan Impression Hypertension/diabetes/metabolic syndrome/musculoskeletal pain Plan Patient education done, patient advised to lose weight, increase activity, control blood pressure and blood sugar, and risk explained, Patient encouraged to follow with the primary care physician, Patient ran out of Procardia and Norvasc, will refill for 1 month, Medications Home Meds Active Scripts Potassium Chloride (Potassium Chloride) 20 Meq Packet, 40 MEQ PO DAILY for 3 Days, #5 PACKET Prov:JORDAN BRUSH MD 07/29/17 Nifedipine (Procardia Xl) 90 Mg Tab.er.24, 90 MG PO DAILY for 15 Days, #15 TAB Prov:JORDAN BRUSH MD 07/29/17 Lisinopril* (Lisinopril*) 5 Mg Tablet, 5 MG PO DAILY for 15 Days, #15 TAB Prov:JORDAN BRUSH MD 07/29/17 Reported Medications Aspirin* (Aspirin* Chew) 81 Mg Tab.chew, 81 MG PO DAILY, TAB.CHEW 07/27/17 [place]-3 Acid Ethyl Esters (Lovaza) 1 Gm Capsule, 2 GM PO DAILY, CAP 07/27/17 Metformin* (Glucophage*) 1,000 Mg Tablet, 1000 MG PO BID, #60 TAB 07/27/17 Glipizide* (Glucotrol*) 10 Mg Tablet, 10 MG PO BID, TAB 07/27/17 Insulin Glargine* (Lantus*) 100 Unit/Ml Soln, 10 UNIT SC QPM, #1 VIAL 07/27/17 Metoprolol Tartrate* (Lopressor*) 100 Mg Tablet, 100 MG PO BID, #60 TAB 07/27/17 MANUELA MCKINNEY MD Aug 17, 2017 12:02
== END | disposition home or self-care (01) ==
LOC: DCC 11:11
PROVIDERS: ATTEND Internal Medicine
DX: M54.9 Dorsalgia, unspecified (principal); I10 Essential (primary) hypertension; E11.9 Type 2 diabetes mellitus without complications; E88.81 Metabolic syndrome and other insulin resistance; M54.2 Cervicalgia; E66.01 Morbid (severe) obesity due to excess calories; Z79.84 Long term (current) use of oral hypoglycemic drugs; Z79.4 Long term (current) use of insulin

== ENCOUNTER 2017-09-30 10:04 | Emergency (ER) | payer BC ==
[~2017-09-30] VITALS: Ht 167.6 cm; Wt 101.0 kg
[2017-09-30 10:08] VITALS: Ht 167.6 cm; Wt 101.0 kg
[2017-09-30] MEDS ORDERED: LISI-313 PO (11:16)
[2017-09-30] MEDS ORDERED: POTASSIUM CHLORIDE (SR) 20 MEQ TAB PO STA (11:57)
[2017-09-30] MEDS ORDERED: POTASSIUM CHLORIDE 20 MEQ in DEXTROSE 5% 100 ML IVPB ONE (12:00)
[2017-09-30] MEDS ORDERED: POTA10TA37 PO (12:21)
--- NOTE | 2017-09-30 13:00 | ERD ---
ER Documentation Chief Complaint Chief Complaint Sent from for eval abnormal labs elevated K HPI A pleasant 57-year-old male with a known history of recurrent hypokalemia that presents to the emergency department after abnormal ancillary laboratory work on an outpatient basis revealed hypokalemia. He states this was relayed to him yesterday and he was instructed to immediately come to the emergency department for further evaluation but was unable to do this until today. The patient states he has no fever shaking or chills. He denies any nausea vomiting or diarrhea. He denies any muscle spasms. He denies a headache or changes in vision. He has no shortness of breath at rest or exertion. ROS All systems reviewed and are negative except as per history of present illness. Medications Home Meds Active Scripts Potassium Chloride* (K-Dur*) 10 Meq Tab.prt.sr, 10 MEQ PO DAILY, #20 TAB Prov:BETTY GRIER 09/30/17 Potassium Chloride (Potassium Chloride) 20 Meq Packet, 40 MEQ PO DAILY for 3 Days, #5 PACKET Prov:JORDAN BRUSH MD 07/29/17 Reported Medications Lisinopril* (Lisinopril*) 5 Mg Tablet, 5 MG PO DAILY, #30 TAB 09/30/17 Aspirin* (Aspirin* Chew) 81 Mg Tab.chew, 81 MG PO DAILY, TAB.CHEW 07/27/17 [place]-3 Acid Ethyl Esters (Lovaza) 1 Gm Capsule, 2 GM PO DAILY, CAP 07/27/17 Glipizide* (Glucotrol*) 10 Mg Tablet, 10 MG PO BID, TAB 07/27/17 Metoprolol Tartrate* (Lopressor*) 100 Mg Tablet, 100 MG PO BID, #60 TAB 07/27/17 Discontinued Reported Medications Metformin* (Glucophage*) 1,000 Mg Tablet, 1000 MG PO BID, #60 TAB 07/27/17 Insulin Glargine* (Lantus*) 100 Unit/Ml Soln, 10 UNIT SC QPM, #1 VIAL 07/27/17 Discontinued Scripts Nifedipine (Procardia Xl) 90 Mg Tab.er.24, 90 MG PO DAILY for 15 Days, #15 TAB Prov:JORDAN BRUSH MD 07/29/17 Lisinopril* (Lisinopril*) 5 Mg Tablet, 5 MG PO DAILY for 15 Days, #15 TAB Prov:JORDAN BRUSH MD 07/29/17 Allergies Allergies: Coded Allergies: No Known Allergy (Unverified , 07/27/17) PMhx/Soc History of Surgery: Yes (right knee 1994) Anesthesia Reaction: No Hx Neurological Disorder: No Hx Respiratory Disorders: No Hx Cardiac Disorders: Yes (htn) Hx Psychiatric Problems: No Hx Miscellaneous Medical Probl: Yes (DM) Hx Alcohol Use: Yes (socially) Hx Substance Use: No Hx Tobacco Use: No Smoking Status: Never smoker Physical Exam Vitals Vital Signs Date Time Temp Pulse Resp B/P Pulse Ox O2 Delivery O2 Flow Rate FiO2 09/30/17 12:43 65 16 172/93 98 Room Air 09/30/17 10:08 98.8 68 20 207/103 96 Physical Exam Constitutional:Well-developed. Well-nourished. HEENT:Normocephalic. Atraumatic.Pupils were equal round reactive to light. Moist mucous membranes.No tonsillar exudates. Neck: No nuchal rigidity. No lymphadenopathy. No posterior cervical spine tenderness or step-offs. Respiratory: Not using accessory muscles of respiration.Lungs were clear to auscultation bilaterally. No rhonchi. No rales. No wheezing. Cardiovascular: Regular rate regular rhythm.No murmurs. No rubs were appreciated.S1, S2 normal. Distal pulses are palpable 2+ bilaterally. GI: Abdomen was soft. Nontender. Non Distended. No pulsatile abdominal masses or bruits. No rebound. No guarding. Bowel sounds were present and normal. Muscle skeletal: Full range of motion of both the upper and lower extremities bilaterally.Normal muscle tone.No assymetrical calf tenderness or swelling. Skin: No petechia, no purpura. No lesions on the palms or the soles of the feet. No maculopapular rash. NEURO: Patient was alert, awake, orientated x3.No facial droop. Gait observed and normal with no ataxia.Speech had regular rate and rhythm. No focal neurological deficits. Result Diagram: 09/30/17 1037 09/30/17 1037 Results 24 hrs Laboratory Tests Test 09/30/17 10:37 White Blood Count 6.910^3/ul Red Blood Count 4.9510^6/ul Hemoglobin 15.5g/dl Hematocrit 45.6% Mean Corpuscular Volume 92.1fl Mean Corpuscular Hemoglobin 31.3pg Mean Corpuscular Hemoglobin Concent 34.0g/dl Red Cell Distribution Width 12.5% Platelet Count 64894^3/UL Mean Platelet Volume 10.4fl Neutrophils % 54.0% Lymphocytes % 31.3% Monocytes % 12.0% Eosinophils % 1.2% Basophils % 1.2% Nucleated Red Blood Cells % 0.0/100WBC Neutrophils # 3.710^3/ul Lymphocytes # 2.210^3/ul Monocytes # 0.810^3/ul Eosinophils # 0.110^3/ul Basophils # 0.110^3/ul Nucleated Red Blood Cells # 0.010^3/ul Prothrombin Time 13.8Sec Prothrombin Time Ratio 1.1 INR International Normalized Ratio 1.06 Activated Partial Thromboplast Time 28.6Sec Sodium Level 142mmol/L Potassium Level 2.8mmol/L Chloride Level 93mmol/L Carbon Dioxide Level 36mmol/L Anion Gap 16 Blood Urea Nitrogen 17mg/dl Creatinine 1.02mg/dl Glucose Level 192mg/dl Calcium Level 9.4mg/dl Total Bilirubin 0.5mg/dl Direct Bilirubin 0.00mg/dl Indirect Bilirubin 0.5mg/dl Aspartate Amino Transf (AST/SGOT) 43IU/L Alanine Aminotransferase (ALT/SGPT) 47IU/L Alkaline Phosphatase 96IU/L Troponin I 0.044ng/ml Total Protein 8.1g/dl Albumin 4.5g/dl Globulin 3.60g/dl Albumin/Globulin Ratio 1.25 Current Medications Medications (Trade) Dose Ordered Sig/Tiffanie Route PRN Reason Start Time Stop Time Status Last Admin Dose Admin Potassium Chloride/Dextrose (KCl/D5W) 110 ml @ 55 mls/hr ONCE ONCE IVPB 09/30/17 12:00 09/30/17 13:59 09/30/17 12:39 Potassium Chloride (Klor-Con 20) 40 meq ONCE STAT PO 09/30/17 11:57 09/30/17 12:00 DC 09/30/17 12:18 Procedures/MDM Patient presented to the emergency department for recurrent hypokalemia. The patient had no obvious source of gastrointestinal loss as result of the hypokalemia. He was asymptomatic. He had IV access was established and was given IV potassium chloride. He stated he did not want to stay in the hospital and after receiving the IV calcium the patient was stable to be discharged. The patient was discharged home in fair condition. They were instructed to return to the emergency department at any time if there was any worsening of their condition. The patient stated they would follow up with their PCP in the next 24-48 hours to initiate a suitable medication regimen under the care of their PCP as well as to allow their PCP to monitor any drug reactions. The patient was discharged home with prescriptions after they gave informed consent to the new medication. They were also fully informed by myself on the adverse effects and adverse drug interactions in order to provide adequate safeguards to prevent possible adverse reactions to medications. Departure Diagnosis: Primary Impression: Hypokalemia Condition: Fair Patient Instructions: Hypokalemia BETTY GRIER Sep 30, 2017 13:00
[2017-09-30 15:28] VITALS: BP 169/89; PULSE 63; RESP 16
== END 2017-09-30 15:36 | disposition home or self-care (01) ==
LOC: E/R 10:04
DX: E87.6 Hypokalemia (principal); I10 Essential (primary) hypertension; E11.9 Type 2 diabetes mellitus without complications; Z79.82 Long term (current) use of aspirin; Z79.84 Long term (current) use of oral hypoglycemic drugs
CPT/HCPCS: 36415; 80053; 84484; 85025; 85610; 85730; 93005; 99284; J3480; Z7610

== ENCOUNTER 2019-01-16 13:02 | Emergency (ER) | payer BC ==
[~2019-01-16] VITALS: Ht 167.6 cm; Wt 100.0 kg
[~2019-01-16 13:02] MED LIST changes: +ASPI-903 PO; -ASPI81TA3 PO; +GLIP10TA3 PO; -GLIP10TA95 PO; -LANT3I SC; -MTF1000T PO; -NIFE90TA PO; +POTA10TA37 PO
[2019-01-16 13:09] VITALS: Ht 167.6 cm; Wt 100.0 kg
[2019-01-16] MEDS ORDERED: NICARDipine HCL 30 MG CAPSULE PO ONE (14:00)
[2019-01-16] MEDS ORDERED: HYDROCODONE/APAP (5/325) TAB PO ONE (14:00)
[2019-01-16] MEDS ORDERED: SOD CHLORIDE 0.9% 1,000 ML IV ONE (15:04)
[2019-01-16] MEDS ORDERED: POTASSIUM CHLORIDE (SR) 20 MEQ TAB PO STA (15:04)
[2019-01-16] MEDS ORDERED: POTASSIUM CHLORIDE 100 ML IVPB ONE (15:30)
[2019-01-16] MEDS ORDERED: HYDR25TA6 PO (16:16)
[2019-01-16] MEDS ORDERED: TRAM50TA2 PO (16:16)
--- NOTE | 2019-01-16 16:23 | ERD ---
ER Documentation Chief Complaint Chief Complaint LOW BACK PAIN WITH LEFT LEG SCIATICA X 4 WEEKS, WORSE LAST 3 DAYS HPI 58-year-old male presents with a 1 month history of low back pain rating down the back of the left leg. His pain is mostly in his calf. Been worse for the last 3 days. Denies any history of inciting events or trauma. Denies any bowel or bladder incontinence, fevers, urinary complaints. She has elevated blood pressure at triage. Patient denies any chest pain, shortness of breath, deficits, headache, visual changes. Patient has a history of hypokalemia of uncertain etiology thought to be hydrochlorothiazide induced but persist despite discontinuation of hydrochlorothiazide. ROS All systems reviewed and are negative except as per history of present illness. Medications Home Meds Active Scripts Lisinopril* (Lisinopril*) 20 Mg Tablet, 20 MG PO DAILY, #30 TAB Prov:ERIBERTO LAROSE MD 01/16/19 Tramadol HCl (Tramadol HCl) 50 Mg Tablet, 50 MG PO Q4 PRN for PAIN, #20 TAB Prov:ERIBERTO LAROSE MD 01/16/19 Potassium Chloride* (K-Dur*) 10 Meq Tab.prt.sr, 10 MEQ PO DAILY, #20 TAB Prov:BETTY GRIER MD 09/30/17 Potassium Chloride (Potassium Chloride) 20 Meq Packet, 40 MEQ PO DAILY for 3 Days, #5 PACKET Prov:JORDAN BRUSH MD 07/29/17 Reported Medications Lisinopril* (Lisinopril*) 5 Mg Tablet, 5 MG PO DAILY, #30 TAB 09/30/17 Aspirin* (Aspirin* Chew) 81 Mg Tab.chew, 81 MG PO DAILY, TAB.CHEW 07/27/17 [place]-3 Acid Ethyl Esters (Lovaza) 1 Gm Capsule, 2 GM PO DAILY, CAP 07/27/17 Glipizide* (Glucotrol*) 10 Mg Tablet, 10 MG PO BID, TAB 07/27/17 Metoprolol Tartrate* (Lopressor*) 100 Mg Tablet, 100 MG PO BID, #60 TAB 07/27/17 Discontinued Scripts Hydrochlorothiazide* (Hydrochlorothiazide*) 25 Mg Tab, 25 MG PO DAILY, #30 TAB Prov:ERIBERTO LAROSE MD 01/16/19 Allergies Allergies: Coded Allergies: No Known Allergy (Unverified , 01/16/19) PMhx/Soc History of Surgery: Yes (right knee 1994) Anesthesia Reaction: No Hx Neurological Disorder: No Hx Respiratory Disorders: No Hx Cardiac Disorders: Yes (htn) Hx Psychiatric Problems: No Hx Miscellaneous Medical Probl: Yes (DM) Hx Alcohol Use: Yes (socially) Hx Substance Use: No Hx Tobacco Use: No Smoking Status: Never smoker FmHx Family History: No diabetes, No coronary disease, No other Physical Exam Vitals Vital Signs Date Temp Pulse Resp B/P (MAP) Pulse Ox O2 O2 Flow FiO2 Time Delivery Rate 01/16/19 69 169/82 15:49 (111) 01/16/19 98.1 70 18 223/112 95 13:09 (149) Physical Exam Const: No acute distress Head: Atraumatic Eyes: Normal Conjunctiva ENT: Normal External Ears, Nose and Mouth. Neck: Full range of motion. No meningismus. Resp: Clear to auscultation bilaterally Cardio: Regular rate and rhythm, no murmurs Abd: Soft, non tender, non distended. Normal bowel sounds Skin: No petechiae or rashes Back: No midline or flank tenderness. Positive straight leg raise on the left. Ext: No cyanosis, or edema. No warmth, erythema. Calves tenderness without swelling. Neur: Awake and alert Psych: Normal Mood and Affect Result Diagram: 01/16/19 1420 01/16/19 1420 Results 24 hrs Laboratory Tests Test 01/16/19 14:20 White Blood Count 8.1 10^3/ul Red Blood Count 5.20 10^6/ul Hemoglobin 16.0 g/dl Hematocrit 46.7 % Mean Corpuscular Volume 89.8 fl Mean Corpuscular Hemoglobin 30.8 pg Mean Corpuscular Hemoglobin Concent 34.3 g/dl Red Cell Distribution Width 11.6 % Platelet Count 307 10^3/UL Mean Platelet Volume 9.8 fl Immature Granulocytes % 0.600 % Neutrophils % 57.4 % Lymphocytes % 31.3 % Monocytes % 8.4 % Eosinophils % 1.2 % Basophils % 1.1 % Nucleated Red Blood Cells % 0.0 /100WBC Immature Granulocytes # 0.050 10^3/ul Neutrophils # 4.6 10^3/ul Lymphocytes # 2.5 10^3/ul Monocytes # 0.7 10^3/ul Eosinophils # 0.1 10^3/ul Basophils # 0.1 10^3/ul Nucleated Red Blood Cells # 0.0 10^3/ul Sodium Level 137 mmol/L Potassium Level 2.9 mmol/L Chloride Level 91 mmol/L Carbon Dioxide Level 38 mmol/L Anion Gap 8 Blood Urea Nitrogen 20 mg/dl Creatinine 1.10 mg/dl Est Glomerular Filtrat Rate mL/min > 60 mL/min Glucose Level 236 mg/dl Calcium Level 9.8 mg/dl Troponin I 0.028 ng/ml Current Medications Medications Dose Sig/Tiffanie Start Time Status Last (Trade) Ordered Route PRN Stop Time Admin Dose Reason Admin Nicardipine 30 mg ONCE ONCE 01/16/19 DC 01/16/19 HCl PO 14:00 14:15 (Cardene) 01/16/19 14:01 1 tab ONCE ONCE 01/16/19 DC 01/16/19 Acetaminophen PO 14:00 14:16 / 01/16/19 14:01 Hydrocodone Bitart ([place] (5/325)) Potassium 100 ml @ ONCE ONCE 01/16/19 01/16/19 Chloride 50 mls/hr IVPB 15:30 15:20 01/16/19 17:29 Sodium 1,000 ml @ Q0M ONCE 01/16/19 DC 01/16/19 Chloride 0 mls/hr IV 15:04 15:15 01/16/19 15:09 Potassium 40 meq ONCE STAT 01/16/19 DC 01/16/19 Chloride PO 15:04 15:15 (Klor-Con 20) 01/16/19 15:06 Procedures/MDM Left lower extremity Doppler was negative for DVT. Patient has a history of hypokalemia. Potassium is 2.9. CBC and CMP otherwise normal except for elevated glucose and chloride 91. Troponin negative. Bicarb slightly elevated possibly contraction alkalosis. Patient was given 20 mEq potassium IV and 40 mg by mouth. Given 1 L normal saline IV as well. EKG: Rate/Rhythm: Normal Sinus Rhythm QRS, ST, T-waves: No changes consistent w/ acute ischemia Impression: No evidence of ischemia or arrhythmia impression-left ventricular hypertrophy without significant arrhythmia or findings of acute ischemia. Blood pressure improved after 30 mg Cardene p.o. Patient has no signs or symptoms of hypertensive emergency, endorgan damage. Patient with low back pain rating to the left leg most consistent with sciatica without findings of DVT, abdominal pain, deficits, findings suggest cauda equina syndrome, epidural abscess. There is a poorly controlled hypertension and will be discharged home with increase of lisinopril and continuation of beta-elvia.. He is advised to follow-up with primary doctor for his ongoing care of hypokalemia of uncertain etiology, hypertension, diabetes, and sciatica. Will discharge home with tramadol as well. The patient was stable with no new complaints during the ER course. Clinically, there is no current evidence to suggest meningitis, sepsis, DKA, acute abdomen, pneumonia, stroke, acute coronary syndrome, pulmonary embo lism, aortic dissection or any other emergent condition appearing to require further evaluation or hospitalization. Patient counseled regarding my diagnostic impression and care plan. Prior to discharge all questions answered. Pt agrees with treatment plan and understands strict return precautions. Pt is instructed to follow up with primary care provider within 24-48 hours. Precautionary instructions provided including instructions to return to the ER if not improving or for any worsening or changing symptoms or concerns. Departure Diagnosis: Primary Impression: Hypertension Hypertension type: unspecified Qualified Codes: I10 - Essential (primary) hypertension Additional Impression: Sciatica Laterality: left Qualified Codes: M54.32 - Sciatica, left side Condition: Stable Patient Instructions: Hyperkalemia, Hypertension, Established, Out Of Control, Back Pain W/ Sciatica Additional Instructions: Follow-up with primary doctor for recheck of potassium. Recheck for new or worsening symptoms fever, and with primary doctor. Will add medication for hypertension.-Chest pain, shortness of breath, ERIBERTO LAROSE MD Jan 16, 2019 16:23
[2019-01-16] MEDS ORDERED: LISI-471 PO (16:25)
[2019-01-16 17:29] VITALS: BP 183/105; PULSE 85; RESP 16
== END 2019-01-16 17:32 | disposition home or self-care (01) ==
LOC: FTE 13:02
DX: I10 Essential (primary) hypertension (principal); M54.32 Sciatica, left side; E11.9 Type 2 diabetes mellitus without complications; Z79.82 Long term (current) use of aspirin; Z79.84 Long term (current) use of oral hypoglycemic drugs
CPT/HCPCS: 36415; 80048; 84484; 85025; 93005; 93971; 99285; J3480; J7030; Z7610

== ENCOUNTER 2019-06-27 15:33 | Emergency (ER) | payer BC ==
[~2019-06-27] VITALS: Ht 162.6 cm; Wt 89.0 kg
[~2019-06-27 15:33] MED LIST changes: +LISI-471 PO; +NAPR-985 PO; +TRAM50TA2 PO
[2019-06-27 15:42] VITALS: BP 163/87; PULSE 83; RESP 18; Ht 162.6 cm; Wt 89.0 kg
--- NOTE | 2019-06-27 17:28 | ERD ---
ER Documentation Chief Complaint Chief Complaint recurrent sciatica, back to righ leg x 6 mos HPI 58-year-old male presents the ED complaining of back pain x6 months. He reports a history of recurrent sciatica and states that this feels similar to that. He states that the pain was worse today so he wanted to come to the emergency department. He used to treat his sciatica with a [place] herbal supplements but he ran out of this. He has been taking Advil provides significant relief of his pain. He states that the back pain radiates down his left leg. He states that the pain is 8 out of 10 at worst and sharp pain. However he states that sitting in the emergency department the pain is 0 out of 10 and he feels fine currently. Patient states that he does not have a good primary care provider and he is wanting information to find a new primary care provider. Patient denies any fevers, chills, saddle anesthesia, loss of bowel or bladder function ROS All systems reviewed and are negative except as per history of present illness. Medications Home Meds Active Scripts Naproxen* (Naprosyn*) 500 Mg Tablet, 500 MG PO BID PRN for PAIN AND/OR INFLA MMATION, #30 TAB Prov:PRESTON PACHECO PA-C 06/27/19 Lisinopril* (Lisinopril*) 20 Mg Tablet, 20 MG PO DAILY, #30 TAB Prov:ERIBERTO LAROSE MD 01/16/19 Tramadol HCl (Tramadol HCl) 50 Mg Tablet, 50 MG PO Q4 PRN for PAIN, #20 TAB Prov:ERIBERTO LAROSE MD 01/16/19 Potassium Chloride* (K-Dur*) 10 Meq Tab.prt.sr, 10 MEQ PO DAILY, #20 TAB Prov:BETTY GRIER MD 09/30/17 Potassium Chloride (Potassium Chloride) 20 Meq Packet, 40 MEQ PO DAILY for 3 Days, #5 PACKET Prov:JORDAN BRUSH MD 07/29/17 Reported Medications Lisinopril* (Lisinopril*) 5 Mg Tablet, 5 MG PO DAILY, #30 TAB 09/30/17 Aspirin* (Aspirin* Chew) 81 Mg Tab.chew, 81 MG PO DAILY, TAB.CHEW 07/27/17 Joy-3 Acid Ethyl Esters (Lovaza) 1 Gm Capsule, 2 GM PO DAILY, CAP 07/27/17 Glipizide* (Glucotrol*) 10 Mg Tablet, 10 MG PO BID, TAB 07/27/17 Metoprolol Tartrate* (Lopressor*) 100 Mg Tablet, 100 MG PO BID, #60 TAB 07/27/17 Allergies Allergies: Coded Allergies: No Known Allergy (Unverified , 01/16/19) PMhx/Soc History of Surgery: Yes (right knee 1994) Anesthesia Reaction: No Hx Neurological Disorder: No Hx Respiratory Disorders: No Hx Cardiac Disorders: Yes (htn) Hx Psychiatric Problems: No Hx Miscellaneous Medical Probl: Yes (DM) Hx Alcohol Use: Yes (socially) Hx Substance Use: No Hx Tobacco Use: No Smoking Status: Never smoker FmHx Family History: No diabetes Physical Exam Vitals Vital Signs Date Temp Pulse Resp B/P (MAP) Pulse Ox O2 O2 Flow FiO2 Time Delivery Rate 06/27/19 98.1 83 18 163/87 99 15:42 (112) Physical Exam Const: No acute distress Head: Atraumatic Neck: Full range of motion Resp: Clear to auscultation bilaterally Cardio: Regular rate and rhythm, Abd: Soft, non tender, non distended. Normal bowel sounds Back: No midline or flank tenderness Neur: Awake and alert Psych: Normal Mood and Affect Results 24 hrs Current Medications Medications Dose Sig/Tiffanie Start Time Status Last (Trade) Ordered Route PRN Stop Time Admin Dose Reason Admin Naproxen 500 mg ONCE ONCE 06/27/19 DC 06/27/19 (Naprosyn) PO 17:30 06/27/19 17:42 17:31 Procedures/MDM ED COURSE: The patient was stable throughout ED course. I kept the patient informed of labo ratory and diagnostic imaging results throughout the ED course. MEDICATIONS GIVEN: Naproxen Patient tolerated medication well with no adverse reactions. Patient reported improvement in pain. MEDICAL DECISION MAKING: Patient is a 56-year-old male complaining of back pain x6 months. I have low suspicion for AAA, CAUDA EQUINA SYNDROME, CORD COMPRESSION, INFILTRATIVE, INFECTIOUS ETIOLOGY, EPIDURAL ABSCESS, FRACTURE. On physical exam patient showed no tenderness to the back. He was able to stand up and walk around without any pain. Patient repeatedly stated that he feels fine and painless during the exam. He states that he has a history of sciatica that is recurrent. He states that Advil makes his pain feel better. He does not have a primary care provider and he is asking for information on finding a new primary care provider to monitor his medical health. Patient was given a list of community clinics for him to call and establish care with. Vital signs were reviewed. Patient is afebrile. Patient was not hypoxic. Patient was hemodynamically stable. Patient was told to follow up with primary care for further care and management. PRESCRIPTION: Naproxen DISCHARGE: At this time, patient is stable for discharge and outpatient management. I have instructed the patient to follow-up with their primary care physician in 1-2 days. I have discussed with the patient the possibility of needing to see a specialist for further workup and imaging studies if symptoms persist. I have instructed the patient to promptly return to the ER for any new or worsening symptoms including increased pain, fever, nausea, vomiting, weakness or LOC. The patient expressed understanding of and agreement with this plan. All questions were answered. Home care instructions were provided. Disclaimer: Inadvertent spelling and grammatical errors are likely due to EHR/dictation software use and do not reflect on the overall quality of patient care. Also, please note that the electronic time recorded on this note does not necessarily reflect the actual time of the patient encounter. Departure Diagnosis: Primary Impression: Sciatica of left side Condition: Fair Patient Instructions: Back Pain W/ Sciatica Referrals: [facility] Urgent Care 7 a.m.- 11 p.m. Every Day of the Week NO APPOINTMENT OR AUTHORIZATION NEEDED [facility] Hours: Mon-Fri 9:00 AM - 5:00 PM [facility] Usted se lau hecho un examen mdico de control que le indica que no est en jolene condicin que requiera tratamiento urgente en el Departamento de Emergencia. Un estudio ms profundo y el tratamiento de will condicin pueden esperar sin ningn riesgo hasta que usted sea atendida/o en el consultorio de will mdico o jolene clnica. Es responsabilidad suya arreglar jolene dillon para el seguimiento del hazel. MANEJO DE CONDICIONES NO URGENTES EN EL FUTURO 1) Si usted tiene un mdico de atencin primaria: Usted debera llamar a will mdico de atencin primaria antes de venir al departamento de emergencia. Despus de las horas de consultorio, will doctor o will asociado/a est disponible por telfono. El mdico o enfermero de eliz en el servicio telefnico puede asesorarle por juan medio para atender el problema, o hazel contrario se puede programar jolene dillon. 2) Si usted no tiene un mdico de atencin primaria: Llame al mdico o clnica de referencia que aparece abajo silvino las horas de consultorio para hacer jolene dillon para que le vean. CLINICAS: [facility] [phone] [address] [facility] [phone] [address] [facility] [address] [facility] [phone] [address] [facility] [facility] [phone] [address] [facility] [address] [facility] [phone] [address] [facility] [address] [phone] [address] [facility]. [facility] () Usted se lau hecho un examen mdico de control que le indica que no est en jolene condicin que requiera tratamiento urgente en el Departamento de Emergencia. Un estudio ms profundo y el tratamiento de will condicin pueden esperar sin ningn riesgo hasta que usted sea atendida/o en el consultorio de will mdico o jolene clnica. Es responsabilidad suya arreglar jolene dillon para el seguimiento del hazel. MANEJO DE CONDICIONES NO URGENTES EN EL FUTURO 1) Si usted tiene un mdico de atencin primaria: Usted debera llamar a will mdico de atencin primaria antes de venir al departamento de emergencia. Despus de las horas de consultorio, will doctor o will asociado/a est disponible por telfono. El mdico o enfermero de eliz en el servicio telefnico puede asesorarle por juan medio para atender el problema, o hazel contrario se puede programar jolene dillon. 2) Si usted no tiene un mdico de atencin primaria: Llame al mdico o condado institucions de referencia que aparece abajo silvino las horas de consultorio para hacer jolene dillon para que le vean. SI USTED NO PUEDE PAGAR PARA JB UN MEDICO puede ir a: [facility] [id number] [place] [address] [facility] [address] [place] [address] [facility] [address] [place] [address] [address] [facility] [address] [place] [address] Additional Instructions: Call 1 of the numbers in the packet to community clinic in order to establish care with a primary care provider Llame al doctor KENY y tera jolene DILLON PARA DENTRO DE 1-2 AGUILAR.Dgale a la secretaria que nosotros le instruimos hacer esta dillon.Avise o llame si will condicin se empeora antes de la dillon. Regresa aqui si peor o no mejor. PRESTON PACHECO PA-C Jun 27, 2019 17:28
[2019-06-27] MEDS ORDERED: NAPROXEN 500 MG TAB PO ONE (17:30)
== END 2019-06-27 17:47 | disposition home or self-care (01) ==
LOC: FTE 15:33
DX: M54.32 Sciatica, left side (principal); E11.9 Type 2 diabetes mellitus without complications; I10 Essential (primary) hypertension; Z79.82 Long term (current) use of aspirin; Z79.84 Long term (current) use of oral hypoglycemic drugs
CPT/HCPCS: 99282; Z7610